=== PATIENT | female | born 1935 | race Two or more races ===

== ENCOUNTER 2018-02-18 17:05 | Emergency (ER) | payer OTHER ==
[~2018-02-18] VITALS: Ht 154.9 cm; Wt 59.4 kg
[~2018-02-18 17:05] MED LIST: SYNTHROID75 MCG
[2018-02-18] MEDS ORDERED: SYNTHROID88 MCG (17:15)
[2018-02-18] MEDS ORDERED: CALCIUM600 MG (17:16)
[2018-02-18] MEDS ORDERED: VITAMIN D35000 UNIT (17:16)
[2018-02-18] MEDS ORDERED: D-BIOTIN1 GM (17:16)
== END 2018-02-18 20:02 | disposition home or self-care (01) ==
LOC: ER 17:05
DX: S20.212A Contusion of left front wall of thorax, initial encounter (principal); S80.02XA Contusion of left knee, initial encounter; M12.562 Traumatic arthropathy, left knee; W18.09XA Striking against other object with subsequent fall, initial encounter; Y93.89 Activity, other specified; Y92.488 Other paved roadways as the place of occurrence of the external cause; Y99.8 Other external cause status

== ENCOUNTER 2018-04-16 15:39 | Emergency (ER) | payer OTHER ==
[~2018-04-16] VITALS: Ht 157.5 cm; Wt 59.4 kg
[~2018-04-16 15:39] MED LIST changes: +CALCIUM600 MG; +D-BIOTIN1 GM; +SYNTHROID88 MCG; +VITAMIN D35000 UNIT
== END 2018-04-16 18:32 | disposition home or self-care (01) ==
LOC: ER 15:39
DX: S01.01XA Laceration without foreign body of scalp, initial encounter (principal); W22.8XXA Striking against or struck by other objects, initial encounter; Y93.01 Activity, walking, marching and hiking; Y92.481 Parking lot as the place of occurrence of the external cause; Y99.8 Other external cause status

== ENCOUNTER → 2018-12-15 | Emergency (ER) | payer OTHER ==
[~2018-12-15] VITALS: Ht 152.4 cm; Wt 59.0 kg
== END | disposition left against medical advice (07) ==
LOC: ER 07:36
DX: Z53.20 Procedure and treatment not carried out because of patient's decision for unspecified reasons (principal)